=== PATIENT | male | born 1970 | race Caucasian/White ===

== ENCOUNTER 2018-12-26 11:44 | Emergency (ER) | payer OTHER ==
[~2018-12-26] VITALS: Ht 172.7 cm; Wt 72.6 kg
[2018-12-26] MEDS ORDERED: HYDROCODONE/APAP 10-325 MG TABLET ONE (12:04)
[2018-12-26] MEDS ORDERED: HYDROCODONE/APAP 10-325 MG TABLET PO ONE (12:15)
--- NOTE | 2018-12-26 13:00 | NUR ---
Patient was seen by MD. Xrays done, EKG done. No cooughing noted during stay in ER. DC, RX (INCLUDING PRECAUTIONS) AND FOLLOW UP INSTRUCTIONS GIVEN AND EXPLAINED TO PATIENT WHO STATES HE UNDERSTANDS ALL INSTRUCTIONS IN [facility] BY OTHER RN
== END 2018-12-26 13:02 | disposition home or self-care (01) ==
LOC: ER 11:44
DX: S20.212A Contusion of left front wall of thorax, initial encounter (principal); X58.XXXA Exposure to other specified factors, initial encounter; Y93.89 Activity, other specified; Y92.89 Other specified places as the place of occurrence of the external cause; Y99.8 Other external cause status
CPT/HCPCS: 71101; 93005; A4663